=== PATIENT | female | born 1995 | race Caucasian/White ===

== ENCOUNTER → 2017-03-04 | Outpatient (CLI) | payer OTHER ==
[~2017-03-04] MED LIST: DPPRI400 IM
--- NOTE | 2017-03-04 16:30 | DIAGNOSTIC IMAGING REPORT ---
TWO VIEW CHEST CLINICAL HISTORY: +PPD. FINDINGS: PA and lateral chest radiographs are obtained. No prior studies are available for comparison at the time of dictation. The cardiomediastinal silhouette is unremarkable. The lungs and pleural spaces are clear. There is no pneumothorax. The bony thorax appears intact. IMPRESSION: No active disease in the chest. Electronically signed by: Cheng Ryan M.D. 03/04/2017 4:28 PM Dictated Date/Time: 03/04/2017 4:28 PM
== END | disposition home or self-care (01) ==
LOC: C.RAD1850 16:15
PROVIDERS: ATTEND Family Medicine
DX: R76.11 Nonspecific reaction to tuberculin skin test without active tuberculosis (principal)

== ENCOUNTER → 2017-04-19 | Outpatient (CLI) | payer OTHER | END | disposition home or self-care (01) | LOC: C.PATHSPEC 14:25 | PROVIDERS: ATTEND Obstetrics & Gynecology | DX: D06.9 Carcinoma in situ of cervix, unspecified (principal) ==

== ENCOUNTER → 2017-04-19 | Outpatient (CLI) | payer OTHER | END | disposition home or self-care (01) | LOC: C.PAPS 15:02 | PROVIDERS: ATTEND Obstetrics & Gynecology | DX: R87.612 Low grade squamous intraepithelial lesion on cytologic smear of cervix (LGSIL) (principal); R87.610 Atypical squamous cells of undetermined significance on cytologic smear of cervix (ASC-US) ==

== ENCOUNTER 2017-05-14 17:35 | Emergency (ER) | payer OTHER ==
[~2017-05-14] VITALS: Ht 160 cm; Wt 63.0 kg
[2017-05-14 17:38] VITALS: TEMP 36.8; Ht 160 cm; Wt 63.0 kg
[2017-05-14] MEDS ORDERED: DiphenhydrAMINE HCL 50 MG/ML VIAL IV STA (18:06)
[2017-05-14] MEDS ORDERED: SODIUM CHLORIDE 0.9% 1000ML 1,000 ML IV STA (18:06)
[2017-05-14] MEDS ORDERED: PROCHLORPERAZINE 5 MG/ML 2 ML VIAL IV STA (18:06)
[2017-05-14 18:27] LABS: BASO % 0.2 %; BASO ABS # 0.01 K/uL (0-0.2); COMPLETE YES; EOS % 0.5 %; HEMATOCRIT 38.3 % (37-47); IG% 0.2 %; LYMPH % 46.2 %; LYMPH ABS # 2.52 K/uL (1.2-3.4); MEAN CELL VOLUME 91.8 fL (80-100); MEAN CORPUSCULAR HEMOGLOBIN 31.7 pg (25-34); MEAN CORPUSCULAR HGB CONC 34.5 g/dl (32-36); MEAN PLATELET VOLUME 10.4 fL (7.4-10.4); MONO % 4.8 %; NEUT % 48.1 %; PLATELET COUNT 198 K/uL (130-400); RED BLOOD COUNT 4.17 M/uL (4.2-5.4); WHITE BLOOD COUNT 5.46 K/uL (4.8-10.8)
[2017-05-14] MEDS ORDERED: DPPRI400 IM (18:27)
[2017-05-14 18:43] LABS: BUN/CREATININE RATIO 10.5 (10-20); CALCIUM 8.7 mg/dl (8.5-10.1); CREATININE 0.65 mg/dl (0.60-1.20); POTASSIUM 3.5 mmol/L (3.5-5.1)
--- NOTE | 2017-05-14 19:33 | DIAGNOSTIC IMAGING REPORT ---
HEAD WITHOUT CONTRAST (CT) CT DOSE: 537.48 mGy.cm HISTORY: Mental status change ROWELL eval for bleed/mass TECHNIQUE: Multiaxial CT images of the head were performed without the use of intravenous contrast. A dose lowering technique was utilized adhering to the principles of ALARA. Comparison: None. Findings: The paranasal sinuses and mastoid air cells are clear. The calvarium and skull base are intact. The ventricles and sulci are within normal limits. There is no mass, hematoma, midline shift, or acute infarct. Impression: No acute intracranial abnormality. The above report was generated using voice recognition software. It may contain grammatical, syntax or spelling errors. Electronically signed by: Hayden Duarte M.D. 05/14/2017 7:32 PM Dictated Date/Time: 05/14/2017 7:31 PM
[2017-05-14 20:07] VITALS: BP 126/82; PULSE 76; O2SAT 98
--- NOTE | 2017-05-15 00:06 | EMERGENCY ROOM VISIT NOTE ---
History Report prepared by Susan: Jorge A Veloz Under the Supervision of: Dr. Ancelmo Bobo M.D. First contact with patient: 17:58 Chief Complaint: HEAD PAIN Stated Complaint: BACK HEAD PAIN, BLURRED VISION, BLACKED OUT History of Present Illness The patient is a 21 year old female who presents to the Emergency Room with complaints of a worsening headache that started yesterday morning. She rates her pain as a 7/10 in severity. The patient describes her pain as a sharp sensation and reports it is located in the posterior right side of her head. The patient states that her pain is worsened with light and driving. She states that whenever she swallows it feels as if her head is throbbing. The patient states that yesterday her symptom was a normal headache. She reports that starting today, she started to experience a worsening headache, which she states is sharp and unlike yesterday. The patient states that the she became dizzy and sensitive to light and driving today. She states that she had an episode of confusion an hour ago when she could not remember what she was doing for two minutes. The patient states that she believes she took Tylenol but cannot remember. She had no time passed out or lost consciousness. The patient states that she can feel the intermittent sharp pain now. She admits that she is able to feel her arms and legs. The patient denies LOC, seeing spots , chest pain, SOB, medical problems, a family history of migraines, a personal history of regular headaches, fever, head injury, vomiting, nausea, and possible . Source of History: patient Onset: yesterday morning Position: head Symptom Intensity: 7/10 Quality: sharp Timing: worsening Modifying Factors (Worsening): other (light, driving) Associated Symptoms: No LOC, No fevers, No chest pain, No SOB, No nausea, No vomiting Review of Systems See HPI for pertinent positives & negatives. A total of 10 systems reviewed and were otherwise negative. Past Medical & Surgical Medical Problems: (1) Asthma Family History Cancer Diabetes mellitus Kidney disease Kidney stones Social History Smoking Status: Never Smoker Alcohol Use: none Drug Use: none Marital Status: in relationship Housing Status: lives with family Occupation Status: employed Current/Historical Medications Scheduled Medroxyprogesterone Acetate (Depo-Provera), 400 MG IM UD Allergies Coded Allergies: No Known Allergies (Unverified , 05/14/17) Physical Exam Vital Signs Date Time Temp Pulse Resp B/P (MAP) Pulse Ox O2 Delivery O2 Flow Rate FiO2 05/14/17 20:07 76 20 126/82 98 05/14/17 17:38 36.8 86 14 140/83 98 Room Air Physical Exam Constitutional: Vital signs reviewed. Eyes: Pupils are equal round reactive to light. Conjunctiva are noninjected. ENT: Pharynx is clear without erythema or exudate. Mucous membranes are moist. Neck supple without meningeal signs. Respiratory: Clear to auscultation bilaterally. Breath sounds are equal bilaterally. Cardiovascular: Regular rate and rhythm. No rubs or gallops. GI: Soft, nondistended and nontender. Bowel sounds are present. Musculoskeletal: No peripheral edema. No lower extremity tenderness. Integumentary: No cyanosis. Neurological: The patient is awake and alert. Cranial nerves II-XII are intact. Motor is 5 out of 5 all extremities. Sensation is intact to light touch all extremities. Normal speech. No pronator drift. Psychiatric: Normal affect. Medical Decision & Procedures ER Provider Diagnostic Interpretation: CT results as stated below per my review and radiologist interpretation. HEAD WITHOUT CONTRAST (CT) CT DOSE: 537.48 mGy.cm HISTORY: Mental status change ROWELL eval for bleed/mass TECHNIQUE: Multiaxial CT images of the head were performed without the use of intravenous contrast. A dose lowering technique was utilized adhering to the principles of ALARA. Comparison: None. Findings: The paranasal sinuses and mastoid air cells are clear. The calvarium and skull base are intact. The ventricles and sulci are within normal limits. There is no mass, hematoma, midline shift, or acute infarct. Impression: No acute intracranial abnormality. The above report was generated using voice recognition software. It may contain grammatical, syntax or spelling errors. Electronically signed by: Hayden Duarte M.D. 05/14/2017 7:32 PM Dictated Date/Time: 05/14/2017 7:31 PM Laboratory Results 05/14/17 18:15 Red Blood Count 4.17, Mean Corpuscular Volume 91.8, Mean Corpuscular Hemoglobin 31.7, Mean Corpuscular Hemoglobin Concent 34.5, Mean Platelet Volume 10.4, Neutrophils (%) (Auto) 48.1, Lymphocytes (%) (Auto) 46.2, Monocytes (%) (Auto) 4.8, Eosinophils (%) (Auto) 0.5, Basophils (%) (Auto) 0.2, Neutrophils # (Auto) 2.63, Lymphocytes # (Auto) 2.52, Monocytes # (Auto) 0.26, Eosinophils # (Auto) 0.03, Basophils # (Auto) 0.01 05/14/17 18:15 Test 05/14/17 18:15 White Blood Count 5.46 K/uL (4.8-10.8) Red Blood Count 4.17 M/uL (4.2-5.4) Hemoglobin 13.2 g/dL (12.0-16.0) Hematocrit 38.3 % (37-47) Mean Corpuscular Volume 91.8 fL (80-100) Mean Corpuscular Hemoglobin 31.7 pg (25-34) Mean Corpuscular Hemoglobin Concent 34.5 g/dl (32-36) Platelet Count 198 K/uL (130-400) Mean Platelet Volume 10.4 fL (7.4-10.4) Neutrophils (%) (Auto) 48.1 % Lymphocytes (%) (Auto) 46.2 % Monocytes (%) (Auto) 4.8 % Eosinophils (%) (Auto) 0.5 % Basophils (%) (Auto) 0.2 % Neutrophils # (Auto) 2.63 K/uL (1.4-6.5) Lymphocytes # (Auto) 2.52 K/uL (1.2-3.4) Monocytes # (Auto) 0.26 K/uL (0.11-0.59) Eosinophils # (Auto) 0.03 K/uL (0-0.5) Basophils # (Auto) 0.01 K/uL (0-0.2) RDW Standard Deviation 41.7 fL (36.4-46.3) RDW Coefficient of Variation 12.3 % (11.5-14.5) Immature Granulocyte % (Auto) 0.2 % Immature Granulocyte # (Auto) 0.01 K/uL (0.00-0.02) Anion Gap 7.0 mmol/L (3-11) Est Creatinine Clear Calc Drug Dose 122.4 ml/min Estimated GFR () 147.1 Estimated GFR (Non- 126.9 BUN/Creatinine Ratio 10.5 (10-20) Calcium Level 8.7 mg/dl (8.5-10.1) Laboratory results as reviewed by me. Medications Administered Medications (Trade) Dose Ordered Sig/Rosemary Route Start Time Stop Time Status Last Admin Dose Admin Prochlorperazine Edisylate (Compazine Inj) 5 mg NOW STAT IV 05/14/17 18:06 05/14/17 18:08 DC 05/14/17 18:23 5 MG Diphenhydramine HCl (Benadryl Inj) 25 mg NOW STAT IV 05/14/17 18:06 05/14/17 18:08 DC 05/14/17 18:23 25 MG Sodium Chloride 1,000 ml @ 999 mls/hr Q1H1M STAT IV 05/14/17 18:06 05/14/17 19:06 DC 05/14/17 18:21 999 MLS/HR ED Course 1800: The patient was evaluated in room B08. A complete history and physical exam was performed. The patient declined test prior to CT scan and treatment. 1806: Ordered Sodium Chloride 1000 ml @ 999 mls/hr IV, Benadryl Injection 25 mg IV, Compazine Injection 5 mg IV. 1854: I reevaluated the patient and she reports that she is feeling better. 1937: I reevaluated the patient and she is feeling better. I discussed the results with her and treatment plan. I also advised that she has a follow up. She agrees to the plan and is ready for discharge. Medical Decision This is a 21-year-old female presents with a headache. Differential diagnosis includes migraine headache, tension headache, cluster headache, intracranial mass, intracranial hemorrhage. I did perform a limited focused review of portions of the patient's old chart on the electronic medical record. The patient has had no recent pertinent visits to this hospital. I did evaluate the patient as noted above. The patient is presenting with a gradual onset headache since yesterday morning. She states the pain is worse with light. She is neurologically intact and afebrile here. IV access was established. She declined testing. I did treat the patient with IV Compazine, Benadryl and normal saline. I did order and review the patient's blood work as noted in the electronic medical record. I did order a CT of the head. I did review the images myself as well as the radiology report as described above. There is no evidence of acute intracranial process. I did reassess the patient. She is feeling much better. I did recommend close follow up with her family physician. She was discharged in good condition and given return instructions as outlined below. Medication Reconcilliation Current Medication List: was personally reviewed by me Blood Pressure Screening Patient's blood pressure: Elevated blood pressure Blood pressure disposition: Referred to PCP Impression Primary Impression: Acute headache Scribe Attestation The scribe's documentation has been prepared under my direct and personally reviewed by me in its entirety. I confirm that the note above accurately reflects all work, treatment, procedures, and medical decision making performed by me. Departure Information Dispostion Home / Self-Care Referrals No Doctor, Assigned (PCP) Forms HOME CARE DOCUMENTATION FORM, IMPORTANT VISIT INFORMATION, WORK / SCHOOL INSTRUCTIONS Patient Instructions Headache Pain, My [facility] Additional Instructions You have been examined and treated today on an emergency basis only. This is not a substitute for, or an effort to provide, complete comprehensive medical care. It is impossible to recognize and treat all injuries or illnesses in a single emergency department visit. It is therefore important that you follow up closely with your physician. Call as soon as possible for an appointment. Return for worsening symptoms or if you develop fever, numbness or weakness on one side of your body, difficulties with your speech or walking, or any other concerning symptoms. Problem Qualifiers Primary Impression: Acute headache Headache type: unspecified Intractability: not intractable Qualified Codes : R51 - Headache
== END 2017-05-14 19:35 | disposition home or self-care (01) ==
LOC: C.EDB 17:38
DX: R51 Headache (principal); R42 Dizziness and giddiness; J45.909 Unspecified asthma, uncomplicated; Z79.899 Other long term (current) drug therapy; Z83.3 Family history of diabetes mellitus; Z84.1 Family history of disorders of kidney and ureter

== ENCOUNTER 2017-06-24 03:30 | Emergency (ER) | payer OTHER ==
[~2017-06-24] VITALS: Ht 160 cm; Wt 62.2 kg
[2017-06-24 03:41] VITALS: TEMP 37.2; Ht 160 cm; Wt 62.2 kg
[2017-06-24] MEDS ORDERED: IBUPROFEN 600 MG TAB PO STA (04:08)
[2017-06-24] MEDS ORDERED: AMOXICILLIN 250 MG CAP PO STA (04:08)
[2017-06-24] MEDS ORDERED: AMOX500C3 PO (04:10)
--- NOTE | 2017-06-24 04:14 | EMERGENCY ROOM VISIT NOTE ---
History First contact with patient: 03:56 Chief Complaint: EAR PAIN Stated Complaint: EAR PAIN History of Present Illness The patient is a 21 year old female who presents to the Emergency Room with complaints of cold symptoms for the past few days who woke up tonight with right ear pain described as throbbing, ranging in severity 7 out of 10. Nothing makes it better or worse. It does not radiate. Patient denies chest pain, dyspnea, sore throat, neck stiffness, abdominal pain, vomiting, diarrhea. Review of Systems See HPI for pertinent positives & negatives. A total of 10 systems reviewed and were otherwise negative. Past Medical/Surgical History Medical Problems: (1) Asthma Family History Cancer Diabetes mellitus Kidney disease Kidney stones Social History Smoking Status: Never Smoker Alcohol Use: none Drug Use: none Marital Status: in relationship Housing Status: lives with family Occupation Status: employed Current/Historical Medications Scheduled Amoxicillin (Amoxil), 500 MG PO TID Medroxyprogesterone Acetate (Depo-Provera), 400 MG IM UD Physical Exam Vital Signs Date Time Temp Pulse Resp B/P (MAP) Pulse Ox O2 Delivery O2 Flow Rate FiO2 06/24/17 03:41 37.2 85 20 121/81 98 Room Air Physical Exam VITALS: Vitals are noted on the nurse's note and reviewed by myself. Vital signs stable. GENERAL: Pleasant female, in no acute distress, nondiaphoretic, well-developed well-nourished. SKIN: The skin was without rashes, erythema, edema, or bruising. There is no tenting of the skin. Capillary reflex less than 2 seconds. HEAD: Normocephalic atraumatic. EARS: Right tympanic membranes bulging consistent with otitis media, left External auditory canals clear, tympanic membranes pearly jang without erythema or effusion, no mastoid tenderness bilaterally. EYES: Pupils equal round and reactive to light and accommodation. Conjunctivae without injection, sclerae without icterus. Extraocular movements intact. NOSE: Patent, turbinates without inflammation or discharge. No sinus tenderness. MOUTH: Mucous membranes moist. Pharynx without erythema or exudate. Uvula midline. Airway patent. Tongue does not deviate. NECK: Supple without nuchal rigidity. No lymphadenopathy. No thyromegaly. Cervical spine is nontender. No JVD. No meningeal signs HEART: Regular rate and rhythm without murmurs gallops or rubs. LUNGS: Clear to auscultation bilaterally without wheezes, rales or rhonchi. No dullness to percussion. No retractions or accessory muscle use. ABDOMEN: Positive bowel sounds x 4. Normal tympanic percussion. Soft, nontender, without masses or organomegaly. Cha sign negative. No guarding or rebound tenderness. MUSCULOSKELETAL: No muscle atrophy, erythema, or edema noted. NEURO: Patient was alert and oriented to person place and time. Normal sensation to light and sharp touch. No focal neurological deficits. Medical Decision & Procedures ED Course Prior records reviewed and summarized as above. Triage Nursing notes reviewed. The patient's history was concerning for cold symptoms with ear pain. Differential diagnosis: Etiologies such as otitis, mastoiditis, meningitis, pharyngitis, pneumonia, influenza, sinusitis, as well as others were entertained.. Physical examination: The physical examination was consistent with otitis ER treatment provided: Amoxicillin, Motrin On reassessment the patient felt better. Diagnostics interpreted by me: Deferred This appears to be right otitis media. Patient started on antibiotics. She was advised take medications as directed and to follow-up health services in a few days or here in the ER sooner for high fevers, lethargy, neck stiffness, worsening signs or symptoms or as needed. Patient had no signs of meningitis or mastoiditis on exam. She is well-appearing.. By the evaluation outlined above emergent etiologies such as meningitis, mastoiditis, as well as others were deemed relatively unlikely. The pt informed about the findings as listed above. All questions were answered and pleased with the treatment. Return instructions were outlined and the patient was discharged in stable condition. Outpatient prescription management: Amoxicillin Referral: The patient was referred back to primary care physician for follow-up in 2 to 3 days for a recheck of the current condition. Medical Decision As above Medication Reconcilliation Current Medication List: was personally reviewed by me Blood Pressure Screening Patient's blood pressure: Normal blood pressure Impression Primary Impression: Right acute otitis media Departure Information Dispostion Home / Self-Care Condition GOOD Prescriptions Amoxicillin (AMOXIL) 500 Mg Cap 500 MG PO TID for 10 Days, #30 CAP Prov: Lilly Barrios .UMBERTO 06/24/17 Forms WORK / SCHOOL INSTRUCTIONS, HOME CARE DOCUMENTATION FORM, IMPORTANT VISIT INFORMATION Patient Instructions [facility], ED Otitis Media Acute Adult Additional Instructions Amoxicillin 500 mg: Take one pill 3 times daily for 10 days for your infection. All antibiotics can cause diarrhea. If this occurs and you feel worse or it does not resolve in 1-2 days follow up with your doctor or return to the Emergency Department as this could be signs of serious underlying problems. Any medication can cause an allergic reaction, stop the pills immediately and return to the ER for rash, hives, breathing difficulties, or swelling. Ibuprofen(Motrin, Advil) may be used for fever or pain. Use 600mg every six hours as needed. Take with food. Avoid using more than 2400mg in a 24 hour period. Do not use 2400mg per day for more than three consecutive days without physician direction. Prolonged inappropriate use can lead to stomach upset or ulcers. (AND/OR) Acetaminophen(Tylenol) may be used for fever or pain. Use 1000mg every six hours as needed. Avoid using more than 3000mg in a 24 hour period. Afrin nasal spray: 2-3 sprays to each nostril twice daily as needed for congestion. Do not use for more than 3-4 days because it can lead to worsening rebound congestion. Pseudoephedrine(Sudaphed): 30-60mg every 6 hours as needed for nasal congestion. Do not take this with other stimulant products or supplements. Rest and drink plenty of fluids. Controlling your fever with Tylenol and Ibuprofen as above will make you feel better. Wash your hands after nose blowing, sneezing, or coughing. Most germs are spread through contact, therefore improper hygiene may result in your close contacts and loved ones becoming ill just like you. Continue current medications. Return to the ER for severe headache, neck stiffness, chest pain, difficulty breathing, fevers, vomiting, worsening of your condition, or as needed. Follow up with your primary physician this week for a recheck of your current condition.
[2017-06-24 04:25] VITALS: BP 130/88; PULSE 95; O2SAT 99
== END 2017-06-24 04:26 | disposition home or self-care (01) ==
LOC: C.EDB 03:31 → C.EDA 04:26
DX: H66.91 Otitis media, unspecified, right ear (principal); J45.909 Unspecified asthma, uncomplicated; Z83.3 Family history of diabetes mellitus; Z84.1 Family history of disorders of kidney and ureter

== ENCOUNTER 2017-09-11 09:23 | Emergency (ER) | payer OTHER ==
[~2017-09-11] VITALS: Ht 160 cm; Wt 61.6 kg
[2017-09-11 09:27] VITALS: TEMP 37; Ht 160 cm; Wt 61.6 kg
[2017-09-11] MEDS ORDERED: KETOROLAC TROMETHAMINE 60 MG/2 ML VIAL IM STA (09:44)
[2017-09-11] MEDS ORDERED: KETOROLAC TROMETHAMINE 30 MG/ML VIAL ONE (09:54)
--- NOTE | 2017-09-11 10:43 | DIAGNOSTIC IMAGING REPORT ---
L RIBS UNILATERAL WITH PA CHEST CLINICAL HISTORY: Left-sided rib pain following injury. COMPARISON STUDY: Chest radiograph March 04, 2017. FINDINGS: There is no pneumothorax or pleural effusion. Lungs are clear. Cardiomediastinal silhouette is normal. Pulmonary vascularity is normal. No acute left rib fractures are identified. IMPRESSION: No pneumothorax. No acute left rib fractures identified. Electronically signed by: Ryan Colon M.D. 09/11/2017 10:41 AM Dictated Date/Time: 09/11/2017 10:40 AM
--- NOTE | 2017-09-11 11:04 | EMERGENCY ROOM VISIT NOTE ---
History Report prepared by Susan: Latanya Hudson Under the Supervision of: Dr. Ancelmo Bobo M.D. First contact with patient: 09:33 Chief Complaint: RIB PAIN Stated Complaint: UNDER RIB PAIN,HOT FLASHES, LIGHTHEADED History of Present Illness The patient is a 21 year old female who presents to the Emergency Room with complaints of persistent left rib pain starting 6 days ago. The patient ran into a wall while running to the bathroom 6 days ago. She hit her ribs on the wall. She did not fall to the ground. She has been having pain in her left ribs and under her ribs since then. She describes the pain as sharp. She has not taken any ibuprofen because she does not like over the counter medications. She is having difficulty taking a deep breath because of the pain. She has been having hot flashes and episodes of lightheadedness. She went to an urgent care 3 days ago and was given an inhaler. She did not have an X-ray. She denies any fever, cough, vomiting, hematuria, bloody stools, leg swelling, or leg pain. She is on control. She denies any history of blood clots. She has a history of asthma. She states she has not taken anything for the pain because she does not like taking [id number] drugs. Source of History: patient Onset: 6 days ago Position: other (left rib) Quality: sharp Timing: other (persistent) Modifying Factors (Worsening): breathing (deeply) Associated Symptoms: No fevers, No cough, No vomiting, No hematochezia, No urinary symptoms Note: Pt reports hot flashes, lightheadedness. Pt denies leg swelling/pain. Review of Systems See HPI for pertinent positives & negatives. A total of 10 systems reviewed and were otherwise negative. Past Medical & Surgical Medical Problems: (1) Asthma Family History Cancer Diabetes mellitus Kidney disease Kidney stones Social History Smoking Status: Never Smoker Alcohol Use: none Drug Use: none Occupation Status: employed Current/Historical Medications Scheduled Medroxyprogesterone Acetate (Depo-Provera), 400 MG IM UD Allergies Coded Allergies: No Known Allergies (Unverified , 09/11/17) Physical Exam Vital Signs Date Time Temp Pulse Resp B/P (MAP) Pulse Ox O2 Delivery O2 Flow Rate FiO2 09/11/17 09:27 37.0 98 20 117/77 100 Room Air Physical Exam Constitutional: Vital signs reviewed. Eyes: Pupils are equal round reactive to light. Conjunctiva are noninjected. ENT: Pharynx is clear without erythema or exudate. Mucous membranes are moist. Neck supple without meningeal signs. Respiratory: Clear to auscultation bilaterally. Breath sounds are equal bilaterally. Cardiovascular: Regular rate and rhythm. No rubs or gallops. GI: Soft, nondistended and nontender. Bowel sounds are present. Musculoskeletal: Left anterior lower rib tenderness. No crepitus. No peripheral edema. No lower extremity tenderness. Integumentary: No cyanosis. Neurological: The patient is awake and alert. No focal deficits. Psychiatric: Normal affect. Medical Decision & Procedures ER Provider Diagnostic Interpretation: X-ray results as stated below per interpretation by me and the radiologist: L RIBS UNILATERAL WITH PA CHEST CLINICAL HISTORY: Left-sided rib pain following injury. COMPARISON STUDY: Chest radiograph March 04, 2017. FINDINGS: There is no pneumothorax or pleural effusion. Lungs are clear. Cardiomediastinal silhouette is normal. Pulmonary vascularity is normal. No acute left rib fractures are identified. IMPRESSION: No pneumothorax. No acute left rib fractures identified. Electronically signed by: Ryan Colon M.D. 09/11/2017 10:41 AM Dictated Date/Time: 09/11/2017 10:40 AM Laboratory Results Test 09/11/17 09:44 Laboratory results as reviewed by me. Medications Administered Medications (Trade) Dose Ordered Sig/Rosemary Route Start Time Stop Time Status Last Admin Dose Admin Ketorolac Tromethamine (Toradol Inj) 30 mg STK-MED ONCE .ROUTE 09/11/17 09:54 09/11/17 09:55 DC 09/11/17 09:56 30 MG ED Course 0936: The patient was evaluated in room A12B. A complete history and physical exam was performed. 0944: Toradol Inj 10 mg IM. 1050: Upon reevaluation, the patient appeared to have improvement of her symptoms. I discussed tonight's findings with her. She verbalized agreement of the treatment plan. She was discharged home. Medical Decision This is a 21-year-old female who presents with left-sided rib pain after running into a wall. Differential diagnosis includes contusion, rib fracture, pneumothorax. I did perform a limited focused review of portions of the patient 's old chart on the electronic medical record. The patient has had no recent pertinent visits to this hospital. I did evaluate the patient as noted above. The patient has tenderness to her left lower ribs after running into a wall. She does not appear to have any abdominal tenderness although she does state it hurts under her ribs as well. FAST exam shows no signs of free fluid in the abdomen. Urine test was obtained and was negative. I did treat the patient with Toradol IM. I did order and personally review the patient's rib and chest x-ray as described above. There is no evidence of pneumothorax or fracture. I did reassess the patient. She states she is feeling better. I did recommend she continue taking [id number] Motrin for her pain. She was discharged in good condition. Medication Reconcilliation Current Medication List: was personally reviewed by me Blood Pressure Screening Patient's blood pressure: Normal blood pressure Blood pressure disposition: Did not require urgent referral Impression Primary Impression: Contusion of rib on left side Scribe Attestation The scribe's documentation has been prepared under my direct and personally reviewed by me in its entirety. I confirm that the note above accurately reflects all work, treatment, procedures, and medical decision making performed by me. Departure Information Dispostion Home / Self-Care Referrals No Doctor, Assigned (PCP) Forms HOME CARE DOCUMENTATION FORM, IMPORTANT VISIT INFORMATION, WORK / SCHOOL INSTRUCTIONS Patient Instructions ED Contusion Vs Minor Fx Rib, My [facility] Additional Instructions You have been examined and treated today on an emergency basis only. This is not a substitute for, or an effort to provide, complete comprehensive medical care. It is impossible to recognize and treat all injuries or illnesses in a single emergency department visit. It is therefore important that you follow up closely with your physician. Call as soon as possible for an appointment. Return for worsening symptoms or if you develop fever, vomiting, blood in your stool or urine, or any other concerning symptoms. Problem Qualifiers Primary Impression: Contusion of rib on left side Encounter type: initial encounter Qualified Codes: S20.212A - Contusion of left front wall of thorax, initial encounter
[2017-09-11 11:06] VITALS: BP 117/67; PULSE 63; O2SAT 100
== END 2017-09-11 11:06 | disposition home or self-care (01) ==
LOC: C.EDB 09:25 → C.EDA 11:06
DX: S20.212A Contusion of left front wall of thorax, initial encounter (principal); W22.09XA Striking against other stationary object, initial encounter; Y93.02 Activity, running; Y99.8 Other external cause status; J45.909 Unspecified asthma, uncomplicated; Z83.3 Family history of diabetes mellitus; Z84.1 Family history of disorders of kidney and ureter

== ENCOUNTER → 2017-11-22 | Outpatient (CLI) | payer OTHER | END | disposition home or self-care (01) | LOC: C.PAPS 16:30 | PROVIDERS: ATTEND Obstetrics & Gynecology | DX: R87.613 High grade squamous intraepithelial lesion on cytologic smear of cervix (HGSIL) (principal) ==

== ENCOUNTER → 2018-01-19 | Outpatient (CLI) | payer OTHER ==
--- NOTE | 2018-01-19 15:11 | DIAGNOSTIC IMAGING REPORT ---
CHEST 2 VIEWS ROUTINE CLINICAL HISTORY: 22 years-old Female presenting with R07.89 OTHER CHEST PAIN. TECHNIQUE: PA and lateral views of the chest were obtained. COMPARISON: 03/04/2017. FINDINGS: Cardiomediastinal silhouette normal. Lungs and pleural spaces clear. Osseous structures normal. Upper abdomen normal. IMPRESSION: 1. No acute cardiopulmonary disease. Electronically signed by: Alon Hylton M.D. 01/19/2018 3:10 PM Dictated Date/Time: 01/19/2018 3:09 PM
== END | disposition home or self-care (01) ==
LOC: C.RAD1850 14:50
PROVIDERS: ATTEND Family Medicine Hospice and Palliative Medicine
DX: R07.89 Other chest pain (principal)